=== PATIENT | female | born 1975 | race Caucasian/White ===

== ENCOUNTER 2017-07-17 15:07 | Emergency (ER) | payer BC ==
[2017-07-17 15:15] VITALS: TEMP 100.1
[2017-07-17] MEDS ORDERED: METOCLOPRAMIDE 5 MG/ML 2 ML VIAL IVP STA (15:44)
[2017-07-17] MEDS ORDERED: ASPIRIN 81 MG PO STA (15:44)
[2017-07-17] MEDS ORDERED: KETOROLAC 30 MG/ML 1 ML VIAL IVP STA (15:44)
[2017-07-17] MEDS ORDERED: SODIUM CHLORIDE 0.9% 500 ML IV STA (15:44)
[2017-07-17] MEDS ORDERED: SODIUM CHLORIDE 0.9% 1,000 ML IV STA (15:44)
[2017-07-17] MEDS ORDERED: LABETALOL 5 MG/ML VIAL MDV IVP STA (15:46)
--- NOTE | 2017-07-17 15:50 | ED ---
General Adult HPI - General Chief complaint: Recheck/Abnormal Lab/Rx Stated complaint: HTN Time Seen by Provider: 07/17/17 15:38 Source: patient Mode of arrival: ambulatory Limitations: no limitations - History of Present Illness Initial comments: This 42-year-old white female presents with primary complaint of high blood pressure. She states that over the past several weeks she has had an elevation of her blood pressure around 180/110. She was seen by her ENT physician today and it was elevated. She apparently followed up with primary care and they sent her to the ER for further evaluation in this regard as well as due to an abnormal EKG. She states that she has had a headache for the past 3 weeks. 3 days ago, she developed some left chest pain which radiated to her left arm. She denies any known cardiac history. She has a remote history of a stress echo but no recent stress test. She denies any current chest pain or shortness of breath. She does have a history of hypertension but was taken off of her Zestril this past year as her blood pressure was normal at that time. She has had some nausea but no vomiting. No other complaints or modifying factors. - Related Data Home Medications Medication Instructions Recorded Confirmed Venlafaxine HCl [Effexor XR] 75 mg PO DAILY 07/17/17 07/17/17 Venlafaxine HCl [Effexor XR] 150 mg PO DAILY 07/17/17 07/17/17 Previous Rx's Medication Instructions Recorded Lisinopril [Zestril] 10 mg PO DAILY #90 tab 07/17/17 Allergies Allergy/AdvReac Type Severity Reaction Status Date / Time erythromycin base Allergy Rash/Hives/ Verified 07/17/17 15:57 [Erythromycin Base] Vomiting Review of Systems ROS Statement: Those systems with pertinent positive or pertinent negative responses have been documented in the HPI. ROS Other: All systems not noted in ROS Statement are negative. Past Medical History Past Medical History: GERD/Reflux, Hypertension History of Any Multi-Drug Resistant Organisms: None Reported Past Surgical History: Adenoidectomy, Cholecystectomy, Hernia Repair, Hysterectomy, Tonsillectomy Past Psychological History: No Psychological Hx Reported Smoking Status: Current every day smoker Past Alcohol Use History: Occasional Past Drug Use History: None Reported General Exam - General Exam Comments Initial Comments: GENERAL: The patient is well nourished and well hydrated. VITAL SIGNS: Heart rate, blood pressure, respiratory rate reviewed as recorded in nurse's notes. EYES: Pupils are round and reactive. Extraocular movements are intact. No conjunctival / lid redness or swelling. ENT: No external evidence of injury, swelling, or ecchymosis. Airway is patent. Throat is clear. NECK: Nontender. No swelling or evidence of injury. No subcutaneous emphysema. Trachea is midline. No thyroid mass. HEART: Regular rate and rhythm. Good peripheral pulses. LUNGS/CHEST: Breath sounds clear and equal bilaterally. No rales, rhonchi, or wheezes. No ecchymosis, subcutaneous emphysema, or tenderness. ABDOMEN: Abdomen soft without tenderness. No palpable masses or organomegaly. No peritoneal signs. No abdominal wall swelling or ecchymosis. EXTREMITIES: No extremity tenderness. Normal muscle tone and function. No thoracolumbar tenderness. NEUROLOGIC: Sensation is grossly intact. Cranial nerve exam reveals face is symmetrical, tongue is midline, speech is clear. SKIN: No abrasions or ecchymosis is noted. No induration or masses noted. PSYCHIATRIC: Alert and oriented. Appropriate behavior and judgment. Limitations: no limitations Course Vital Signs 07/17/17 07/17/17 07/17/17 15:13 15:39 16:39 Temperature 100.1 F H Pulse Rate 100 69 Respiratory 18 16 Rate Blood Pressure 188/105 163/96 150/100 O2 Sat by Pulse 99 96 Oximetry 07/17/17 17:40 Temperature Pulse Rate 70 Respiratory 17 Rate Blood Pressure 157/97 O2 Sat by Pulse 97 Oximetry Medical Decision Making - Medical Decision Making The patient was seen and examined. All diagnostics were reviewed. The EKG shows a normal sinus rhythm at a rate of 91. There is no acute ST-T wave changes identified. The CA interval is 146, QRS duration is 86, and the QTc interval is 440. The patient does receive an IV and is placed on a athletic monitor. No ectopy is identified. The patient receives some Reglan, Toradol, aspirin, and labetalol. The chest x-ray does not show any acute processes. The laboratory is all essentially within normal limits. She is feeling remarkably improved on recheck. Her blood pressure has come down and her headache is resolved. It is felt as though she would benefit from additional blood pressure medication. She previously was on Zestril 10 mg daily but has been off it for a year. She seemed to tolerate this medication well in the past and will be restarted on this medication. She was offered admission to the hospital as she did have a chest pain episode 3 days ago. She refuses. Risks and benefits were discussed. She is agreeable to following up closely with primary care physician for stress test on an outpatient basis and to return if symptoms do worsen. - Lab Data Result diagrams: 07/17/17 15:34 07/17/17 15:34 Lab Results 07/17/17 07/17/17 07/17/17 Range/Units 15:34 15:34 15:34 WBC 10.4 (3.8-10.6) k/uL RBC 4.45 (3.80-5.40) m/uL Hgb 15.2 (11.4-16.0) gm/dL Hct 45.3 (34.0-46.0) % MCV 101.8 H (80.0-100.0) fL MCH 34.2 (25.0-35.0) pg MCHC 33.6 (31.0-37.0) g/dL RDW 12.0 (11.5-15.5) % Plt Count 392 (150-450) k/uL Neutrophils % 64 % Lymphocytes % 24 % Monocytes % 4 % Eosinophils % 3 % Basophils % 1 % Neutrophils # 6.7 (1.3-7.7) k/uL Lymphocytes # 2.5 (1.0-4.8) k/uL Monocytes # 0.5 (0-1.0) k/uL Eosinophils # 0.3 (0-0.7) k/uL Basophils # 0.1 (0-0.2) k/uL PT (9.0-12.0) sec INR (<1.2) APTT (22.0-30.0) sec Sodium 138 (137-145) mmol/L Potassium 5.3 H (3.5-5.1) mmol/L Chloride 104 (98-107) mmol/L Carbon Dioxide 24 (22-30) mmol/L Anion Gap 10 mmol/L BUN 7 (7-17) mg/dL Creatinine 0.72 (0.52-1.04) mg/dL Est GFR (MDRD) Af Amer >60 (>60 ml/min/1.73 sqM) Est GFR (MDRD) Non-Af >60 (>60 ml/min/1.73 sqM) Glucose 94 (74-99) mg/dL Calcium 9.6 (8.4-10.2) mg/dL Magnesium 1.9 (1.6-2.3) mg/dL Total Bilirubin 0.4 (0.2-1.3) mg/dL AST 29 (14-36) U/L ALT 22 (9-52) U/L Alkaline Phosphatase 57 (38-126) U/L Total Creatine Kinase 36 (30-135) U/L CK-MB (CK-2) 0.7 (0.0-2.4) ng/mL CK-MB (CK-2) Rel Index 1.9 Troponin I <0.012 (0.000-0.034) ng/mL Total Protein 7.5 (6.3-8.2) g/dL Albumin 4.7 (3.5-5.0) g/dL Urine Color Urine Appearance (Clear) Urine pH (5.0-8.0) Ur Specific [place] (1.001-1.035) Urine Protein (Negative) Urine Glucose (UA) (Negative) Urine Ketones (Negative) Urine Blood (Negative) Urine Nitrite (Negative) Urine Bilirubin (Negative) Urine Urobilinogen (<2.0) mg/dL Ur Leukocyte Esterase (Negative) 07/17/17 07/17/17 Range/Units 15:34 16:20 WBC (3.8-10.6) k/uL RBC (3.80-5.40) m/uL Hgb (11.4-16.0) gm/dL Hct (34.0-46.0) % MCV (80.0-100.0) fL MCH (25.0-35.0) pg MCHC (31.0-37.0) g/dL RDW (11.5-15.5) % Plt Count (150-450) k/uL Neutrophils % % Lymphocytes % % Monocytes % % Eosinophils % % Basophils % % Neutrophils # (1.3-7.7) k/uL Lymphocytes # (1.0-4.8) k/uL Monocytes # (0-1.0) k/uL Eosinophils # (0-0.7) k/uL Basophils # (0-0.2) k/uL PT 10.1 (9.0-12.0) sec INR 1.0 (<1.2) APTT 25.1 (22.0-30.0) sec Sodium (137-145) mmol/L Potassium (3.5-5.1) mmol/L Chloride (98-107) mmol/L Carbon Dioxide (22-30) mmol/L Anion Gap mmol/L BUN (7-17) mg/dL Creatinine (0.52-1.04) mg/dL Est GFR (MDRD) Af Amer (>60 ml/min/1.73 sqM) Est GFR (MDRD) Non-Af (>60 ml/min/1.73 sqM) Glucose (74-99) mg/dL Calcium (8.4-10.2) mg/dL Magnesium (1.6-2.3) mg/dL Total Bilirubin (0.2-1.3) mg/dL AST (14-36) U/L ALT (9-52) U/L Alkaline Phosphatase (38-126) U/L Total Creatine Kinase (30-135) U/L CK-MB (CK-2) (0.0-2.4) ng/mL CK-MB (CK-2) Rel Index Troponin I (0.000-0.034) ng/mL Total Protein (6.3-8.2) g/dL Albumin (3.5-5.0) g/dL Urine Color Colorless Urine Appearance Clear (Clear) Urine pH 7.0 (5.0-8.0) Ur Specific [place] 1.003 (1.001-1.035) Urine Protein Negative (Negative) Urine Glucose (UA) Negative (Negative) Urine Ketones Negative (Negative) Urine Blood Negative (Negative) Urine Nitrite Negative (Negative) Urine Bilirubin Negative (Negative) Urine Urobilinogen <2.0 (<2.0) mg/dL Ur Leukocyte Esterase Negative (Negative) Disposition Clinical Impression: Hypertensive urgency, Cephalgia, Chest pain Disposition: HOME SELF-CARE Condition: Good Instructions: DASH Eating Plan (ED), Hypertension (ED), Acute Headache (ED), Chest Pain (ED) Prescriptions: Lisinopril [Zestril] 10 mg PO DAILY #90 tab Referrals: Jordan Encarnacion MD [Primary Care Provider] - 1-2 days Time of Disposition: 17:57
[2017-07-17 15:58] LABS: Basophils # (A) 0.1 k/uL (0-0.2); Basophils % (A) 1 %; CH 33.2; CHCM 32.7; Eosinophils # (A) 0.3 k/uL (0-0.7); Eosinophils % (A) 3 %; HCT 45.3 % (34.0-46.0); HDW 2.05; HGB 15.2 gm/dL (11.4-16.0); Luc # (Auto) 0.46; Luc % (Auto) 5; Lymphocytes # (A) 2.5 k/uL (1.0-4.8); Lymphocytes % (A) 24 %; MCH 34.2 pg (25.0-35.0); MCHC 33.6 g/dL (31.0-37.0); MCV 101.8 fL (80.0-100.0); Mean Platelet Volume 6.6; Monocytes # (A) 0.5 k/uL (0-1.0); Monocytes % (A) 4 %; Neutrophils # (A) 6.7 k/uL (1.3-7.7); Neutrophils % (A) 64 %; RBC 4.45 m/uL (3.80-5.40); WBC 10.4 k/uL (3.8-10.6)
[2017-07-17 16:04] LABS: Partial Thromboplastin Time 25.1 sec (22.0-30.0); Prothrombin Time 10.1 sec (9.0-12.0)
[2017-07-17 16:15] LABS: ALT 22 U/L (9-52); AST 29 U/L (14-36); Alkaline Phosphatase 57 U/L (38-126); Anion Gap 10 mmol/L; Blood Urea Nitrogen 7 mg/dL (7-17); Calcium 9.6 mg/dL (8.4-10.2); Carbon Dioxide 24 mmol/L (22-30); Chloride 104 mmol/L (98-107); Creatine Kinase 36 U/L (30-135); Glucose 94 mg/dL (74-99); Magnesium 1.9 mg/dL (1.6-2.3); Non-African American GFR(MDRD) >60 (>60 ml/min/1.73 sqM); Potassium 5.3 mmol/L (3.5-5.1); Sodium 138 mmol/L (137-145); Total Bilirubin 0.4 mg/dL (0.2-1.3); Total Protein 7.5 g/dL (6.3-8.2)
[2017-07-17 16:24] LABS: Appearance,Urine Clear (Clear); Bilirubin,Urine Negative (Negative); Glucose,Urine (UA) Negative (Negative); Ketones,Urine Negative (Negative); Leukocyte Esterase,Urine Negative (Negative); Nitrite,Urine Negative (Negative); Protein,Urine Negative (Negative); Specific Gravity,Urine 1.003 (1.001-1.035); UA Billing (MACRO vs. MICRO) CHEM; Urobilinogen,Urine <2.0 mg/dL (<2.0)
[2017-07-17 16:28] LABS: Creatine Kinase MB 0.7 ng/mL (0.0-2.4); Troponin I <0.012 ng/mL (0.000-0.034)
--- NOTE | 2017-07-17 16:47 | XR ---
EXAMINATION TYPE: XR chest 2V DATE OF EXAM: 07/17/2017 COMPARISON: Chest x-ray November 11, 2008 HISTORY: Chest pain per order. TECHNIQUE: Frontal and lateral views of the chest are obtained. FINDINGS: There is no focal air space opacity, pleural effusion, or pneumothorax seen. The cardiac silhouette size is within normal limits. The osseous structures are intact. Cholecystectomy clips a re noted on lateral view. IMPRESSION: No acute cardiopulmonary process.
[2017-07-17 17:41] VITALS: BP 157/97; PULSE 70; RESP 17
== END 2017-07-17 18:13 | disposition home or self-care (01) ==
LOC: EC 15:07
DX: I10 Essential (primary) hypertension (principal); R51 Headache; R07.9 Chest pain, unspecified; F17.200 Nicotine dependence, unspecified, uncomplicated; Z79.899 Other long term (current) drug therapy; Z88.1 Allergy status to other antibiotic agents
CPT/HCPCS: 99284 ×2; 96374 ×2; 96375 ×3; 96361 ×3; 36415; 93005; 80053; 82550; 82553; 83735; 84484; 85025; 85610; 85730; 81003; 84703; 87040; 71020; J2765; J1885

== ENCOUNTER 2017-08-01 10:53 | Emergency (ER) | payer BC ==
[2017-08-01] MEDS ORDERED: SODIUM CHLORIDE 0.9% 1,000 ML IV STA ×2 (11:23)
[2017-08-01] MEDS ORDERED: SODIUM CHLORIDE 0.9% 500 ML IV STA (11:23)
[2017-08-01] MEDS ORDERED: LORazepam 2 MG/ML INJ IV STA (11:23)
[2017-08-01] MEDS ORDERED: LABETALOL 5 MG/ML VIAL MDV IVP STA (11:23)
--- NOTE | 2017-08-01 11:28 | ED ---
General Adult HPI - General Chief complaint: Recheck/Abnormal Lab/Rx Stated complaint: high blood pressure Time Seen by Provider: 08/01/17 11:12 Source: patient, RN notes reviewed, old records reviewed Mode of arrival: wheelchair Limitations: no limitations - History of Present Illness Initial comments: This is a 42-year-old female to the ER for evaluation. Patient presents today for reevaluation of severely elevated blood pressure as well as what she states is some facial drooping that she noticed last night. Patient denies headache. Patient states she has multiple issues numbness and tingling in legs and feet. Patient was recently in ER for similar symptoms started on antihypertensive medication and has still had elevated blood pressure at home. Patient denies drugs or alcohol. Denies chest pain no nausea vomiting or abdominal pain. - Related Data Home Medications Medication Instructions Recorded Confirmed Venlafaxine HCl [Effexor XR] 225 mg PO DAILY 07/17/17 08/01/17 Lisinopril [Zestril] 20 mg PO DAILY 08/01/17 08/01/17 Allergies Allergy/AdvReac Type Severity Reaction Status Date / Time erythromycin base Allergy Rash/Hives/ Verified 08/01/17 11:16 [Erythromycin Base] Vomiting Review of Systems ROS Statement: Those systems with pertinent positive or pertinent negative responses have been documented in the HPI. ROS Other: All systems not noted in ROS Statement are negative. Past Medical History Past Medical History: GERD/Reflux, Hypertension History of Any Multi-Drug Resistant Organisms: None Reported Past Surgical History: Adenoidectomy, Section, Cholecystectomy, Hernia Repair, Hysterectomy, Tonsillectomy Past Psychological History: Anxiety, Depression Smoking Status: Current every day smoker Past Alcohol Use History: Occasional Past Drug Use History: None Reported General Exam Limitations: no limitations General appearance: alert, in no apparent distress, anxious Head exam: Present: atraumatic, normocephalic, normal inspection Eye exam: Present: normal appearance, PERRL, EOMI. Absent: scleral icterus, conjunctival injection, periorbital swelling ENT exam: Present: normal exam, mucous membranes moist Neck exam: Present: normal inspection. Absent: tenderness, meningismus, lymphadenopathy Respiratory exam: Present: normal lung sounds bilaterally. Absent: respiratory distress, wheezes, rales, rhonchi, stridor Cardiovascular Exam: Present: normal rhythm, tachycardia, normal heart sounds. Absent: systolic murmur, diastolic murmur, rubs, gallop, clicks GI/Abdominal exam: Present: soft, normal bowel sounds. Absent: distended, tenderness, guarding, rebound, rigid Extremities exam: Present: normal inspection, full ROM, normal capillary refill. Absent: tenderness, pedal edema, joint swelling, calf tenderness Back exam: Present: normal inspection Neurological exam: Present: alert, oriented X3, CN II-XII intact Psychiatric exam: Present: normal affect, normal mood Skin exam: Present: warm, dry, intact, normal color. Absent: rash Course Vital Signs 08/01/17 08/01/17 08/01/17 11:03 11:46 12:29 Temperature 99.0 F Pulse Rate 129 H 98 93 Respiratory 18 18 14 Rate Blood Pressure 180/109 161/97 140/79 O2 Sat by Pulse 100 100 99 Oximetry - Reevaluation(s) Reevaluation #1: 08/01/17 11:59 Patient's blood pressure and anxiety has improved Reevaluation #2: 08/01/17 12:00 Patient is not TPA candidate secondary to low NIH O patient has no appreciable neurological deficit, facial droop is also greater than 24h Reevaluation #3: 08/01/17 13:07 Blood pressure is well-controlled at this time EKG Findings - EKG Comments: EKG Findings:: EKG shows sinus tachycardia rate 112, MI 168, QRS 88, QTC 439 Medical Decision Making - Medical Decision Making 42 female to the ER for evaluation. Patient presents here for evaluation of anxiety. Elevated blood pressure. Patient is taking outpatient medication as prescribed. Patient's blood pressures improved in the ER CT is negative, neurological symptoms are nonspecific. Patient will be discharged home - Lab Data Result diagrams: 08/01/17 11:50 08/01/17 11:50 Lab Results 08/01/17 08/01/17 08/01/17 Range/Units 11:50 11:50 11:50 WBC 11.1 H (3.8-10.6) k/uL RBC 4.80 (3.80-5.40) m/uL Hgb 15.9 (11.4-16.0) gm/dL Hct 48.5 H (34.0-46.0) % MCV 101.0 H (80.0-100.0) fL MCH 33.2 (25.0-35.0) pg MCHC 32.9 (31.0-37.0) g/dL RDW 11.9 (11.5-15.5) % Plt Count 349 (150-450) k/uL Neutrophils % 68 % Lymphocytes % 24 % Monocytes % 4 % Eosinophils % 2 % Basophils % 1 % Neutrophils # 7.5 (1.3-7.7) k/uL Lymphocytes # 2.6 (1.0-4.8) k/uL Monocytes # 0.4 (0-1.0) k/uL Eosinophils # 0.2 (0-0.7) k/uL Basophils # 0.1 (0-0.2) k/uL Sodium 137 (137-145) mmol/L Potassium 4.2 (3.5-5.1) mmol/L Chloride 102 (98-107) mmol/L Carbon Dioxide 24 (22-30) mmol/L Anion Gap 11 mmol/L BUN 4 L (7-17) mg/dL Creatinine 0.49 L (0.52-1.04) mg/dL Est GFR (MDRD) Af Amer >60 (>60 ml/min/1.73 sqM) Est GFR (MDRD) Non-Af >60 (>60 ml/min/1.73 sqM) Glucose 120 H (74-99) mg/dL Calcium 9.6 (8.4-10.2) mg/dL Phosphorus 3.0 (2.5-4.5) mg/dL Magnesium 1.8 (1.6-2.3) mg/dL Total Bilirubin 0.4 (0.2-1.3) mg/dL AST 19 (14-36) U/L ALT 27 (9-52) U/L Alkaline Phosphatase 54 (38-126) U/L Total Creatine Kinase 31 (30-135) U/L CK-MB (CK-2) 0.5 (0.0-2.4) ng/mL CK-MB (CK-2) Rel Index 1.6 Troponin I <0.012 (0.000-0.034) ng/mL Total Protein 7.2 (6.3-8.2) g/dL Albumin 4.7 (3.5-5.0) g/dL - Radiology Data Radiology results: report reviewed (CT brain is negative for acute disease), image reviewed Disposition Clinical Impression: Hypertensive urgency Disposition: HOME SELF-CARE Condition: Good Instructions: Hypertension (ED) Referrals: Jordan Encranacion MD [Primary Care Provider] - 1-2 days
[2017-08-01 12:08] LABS: Basophils # (A) 0.1 k/uL (0-0.2); Basophils % (A) 1 %; CH 33.6; CHCM 33.5; Eosinophils # (A) 0.2 k/uL (0-0.7); Eosinophils % (A) 2 %; HCT 48.5 % (34.0-46.0); HDW 2.06; HGB 15.9 gm/dL (11.4-16.0); Luc # (Auto) 0.27; Luc % (Auto) 2; Lymphocytes # (A) 2.6 k/uL (1.0-4.8); Lymphocytes % (A) 24 %; MCH 33.2 pg (25.0-35.0); MCHC 32.9 g/dL (31.0-37.0); Mean Platelet Volume 6.1; Monocytes # (A) 0.4 k/uL (0-1.0); Monocytes % (A) 4 %; Neutrophils # (A) 7.5 k/uL (1.3-7.7); Neutrophils % (A) 68 %; RDW 11.9 % (11.5-15.5); WBC 11.1 k/uL (3.8-10.6); WBC (Perox) 10.25
[2017-08-01 12:27] LABS: ALT 27 U/L (9-52); AST 19 U/L (14-36); Alkaline Phosphatase 54 U/L (38-126); Anion Gap 11 mmol/L; Blood Urea Nitrogen 4 mg/dL (7-17); Calcium 9.6 mg/dL (8.4-10.2); Carbon Dioxide 24 mmol/L (22-30); Chloride 102 mmol/L (98-107); Glucose 120 mg/dL (74-99); Magnesium 1.8 mg/dL (1.6-2.3); Non-African American GFR(MDRD) >60 (>60 ml/min/1.73 sqM); Potassium 4.2 mmol/L (3.5-5.1); Sodium 137 mmol/L (137-145); Total Bilirubin 0.4 mg/dL (0.2-1.3); Total Protein 7.2 g/dL (6.3-8.2)
--- NOTE | 2017-08-01 12:32 | CT ---
EXAMINATION TYPE: CT brain wo con DATE OF EXAM: 08/01/2017 COMPARISON: NONE INDICATION: High blood pressure DLP: 1091 mGycm, Automated exposure control for dose reduction was used. CONTRAST: None CT of the brain is performed utilizing 3 mm thick sections through the posterior fossa and 3 mm thick sections through the remaining calvarium. Study is performed within 24 hours of arrival to the hosp ital. No abnormal hyperdensity is present to suggest an acute intracranial hemorrhage. No mass lesion is evident. No acute infarcts are evident. Ventricles and sulci are appropriate for the patient age. Paranasal sinuses and mastoid air cells within the [id number] are clear. IMPRESSIONS: 1. Normal CT Brain
[2017-08-01 12:34] LABS: Creatine Kinase 31 U/L (30-135)
[2017-08-01 12:45] LABS: Creatine Kinase MB 0.5 ng/mL (0.0-2.4); Troponin I <0.012 ng/mL (0.000-0.034)
[2017-08-01 13:28] VITALS: BP 123/85; PULSE 100; RESP 18; TEMP 98.7
== END 2017-08-01 13:26 | disposition home or self-care (01) ==
LOC: EC 10:53
DX: I16.0 Hypertensive urgency (principal); R00.0 Tachycardia, unspecified; R29.810 Facial weakness; R20.0 Anesthesia of skin; R20.2 Paresthesia of skin; F32.9 Major depressive disorder, single episode, unspecified; F41.9 Anxiety disorder, unspecified; F17.200 Nicotine dependence, unspecified, uncomplicated; Z79.899 Other long term (current) drug therapy; Z88.1 Allergy status to other antibiotic agents
CPT/HCPCS: 99284 ×2; 96374 ×2; 96361 ×2; 36415; 93005; 80053; 82550; 82553; 83735; 84100; 84484; 85025; 70450; J2060

== ENCOUNTER → 2017-10-02 | Outpatient (CLI) | payer BC ==
--- NOTE | 2017-10-02 17:25 | NM ---
EXAMINATION TYPE: NM bone/joint limited DATE OF EXAM: 10/02/2017 COMPARISON: 11/04/2015 HISTORY: Pain in thoracic spine TECHNIQUE: After the intravenous administration of 27 mCi Tc 99m MDP. Images acquired post injectio n. Multiple views of the thoracic cavity are submitted. There is no abnormal uptake within the visualized osseous structures to suggest acute process. No ki picious uptake within the thoracic or lumbar spine within the [id number] is evident. Uptake within the ribs appears normal. IMPRESSION: No acute osseous abnormality. Thoracic spine has normal radiotracer distribution
== END | disposition home or self-care (01) ==
LOC: RADNMMAIN 09:56
PROVIDERS: ATTEND Physical Medicine & Rehabilitation
DX: M54.6 Pain in thoracic spine (principal)
CPT/HCPCS: 78300; A9503

== ENCOUNTER 2021-02-21 02:14 | Emergency (ER) | payer BC ==
[2021-02-21 02:25] VITALS: BP 150/101; PULSE 92; RESP 20; TEMP 98.1
[2021-02-21] MEDS ORDERED: CEPHALEXIN 500MG STARTER PACK 4 CAP BTL PO STA (03:04)
[2021-02-21] MEDS ORDERED: CEPHALEXIN 500 MG CAP PO STA (03:04)
--- NOTE | 2021-02-21 03:04 | ED ---
Wound/Laceration HPI - General Chief Complaint: Wound/Laceration Stated Complaint: Knee Injury/Laceration Time Seen by Provider: 02/21/21 02:17 Source: patient, family, RN notes reviewed, old records reviewed Mode of arrival: ambulatory Limitations: no limitations - History of Present Illness Initial Comments: This is a 45-year-old female DF for evaluation patient Dese for evaluation regards to laceration patient drinking last night and sustained laceration to the knee. Patient presents for evaluation of right knee pain minimal bleeding and laceration -: hour(s) Extremity Location: Right: Knee Place: home Patient Tetanus UTD: Yes Context: accidental Associated Symptoms: none Treatments Prior to Arrival: bandage - Related Data Home Medications Medication Instructions Recorded Confirmed Venlafaxine HCl [Effexor XR] 225 mg PO DAILY 07/17/17 08/01/17 lisinopriL [Zestril] 20 mg PO DAILY 08/01/17 08/01/17 Allergies Allergy/AdvReac Type Severity Reaction Status Date / Time erythromycin base Allergy Rash/Hives/ Verified 02/21/21 02:25 [Erythromycin Base] Vomiting Review of Systems ROS Statement: Those systems with pertinent positive or pertinent negative responses have been documented in the HPI. ROS Other: All systems not noted in ROS Statement are negative. Past Medical History Past Medical History: GERD/Reflux, Hypertension History of Any Multi-Drug Resistant Organisms: None Reported Past Surgical History: Adenoidectomy, Section, Cholecystectomy, Hernia Repair, Hysterectomy, Tonsillectomy Past Psychological History: Anxiety, Depression Smoking Status: Current every day smoker Past Alcohol Use History: Heavy Past Drug Use History: None Reported General Exam - General Exam Comments Initial Comments: Significant laceration right knee this centimeters Limitations: no limitations General appearance: alert, in no apparent distress Head exam: Present: atraumatic, normocephalic, normal inspection Eye exam: Present: normal appearance, PERRL, EOMI. Absent: scleral icterus, conjunctival injection, periorbital swelling ENT exam: Present: normal exam, mucous membranes moist Neck exam: Present: normal inspection. Absent: tenderness, meningismus, lymphadenopathy Respiratory exam: Present: normal lung sounds bilaterally. Absent: respiratory distress, wheezes, rales, rhonchi, stridor Cardiovascular Exam: Present: regular rate, normal rhythm, normal heart sounds. Absent: systolic murmur, diastolic murmur, rubs, gallop, clicks GI/Abdominal exam: Present: soft, normal bowel sounds. Absent: distended, tenderness, guarding, rebound, rigid Extremities exam: Present: normal inspection, full ROM, normal capillary refill. Absent: tenderness, pedal edema, joint swelling, calf tenderness Back exam: Present: normal inspection Neurological exam: Present: alert, oriented X3, CN II-XII intact Psychiatric exam: Present: normal affect, normal mood Skin exam: Present: warm, dry, intact, normal color. Absent: rash Course Vital Signs 02/21/21 02:20 Temperature 98.1 F Pulse Rate 92 Respiratory 20 Rate Blood Pressure 150/101 O2 Sat by Pulse 99 Oximetry - Reevaluation(s) Reevaluation #1: Medical record is reviewed Patient has no significant acute symptoms improving symptoms here in the ER Patient informed results and questions have been answered Procedures - Laceration Laceration #1 Consent Obtained: verbal consent Indication: laceration Site: lower extremity Description: linear Depth: simple, single layer Anesthetic Used: lidocaine 1%, with epi Anesthesia Technique: local infiltration Type of Sutures: nylon Size of Sutures: 4-0 Technique: simple, interrupted Complications: pain Patient Tolerated Procedure: well Medical Decision Making - Medical Decision Making 45 female DF for evaluation of knee laceration laceration is repaired. Patient can be discharged home Disposition Clinical Impression: Laceration, Fall, Laceration of right knee Disposition: HOME SELF-CARE Condition: Good Instructions (If sedation given, give patient instructions): Laceration (ED) Is patient prescribed a controlled substance at d/c from ED?: No Referrals: Nonstaff,Physician [REFERRING] - 1-2 days
[2021-02-21] MEDS ORDERED: LIDOCAINE 1% INJ 10MG/ML (20 ML MDV) SQ ONE (03:05)
== END 2021-02-21 03:18 | disposition home or self-care (01) ==
LOC: EC 02:14
DX: S81.011A Laceration without foreign body, right knee, initial encounter (principal); I10 Essential (primary) hypertension; K21.9 Gastro-esophageal reflux disease without esophagitis; F17.200 Nicotine dependence, unspecified, uncomplicated; W10.9XXA Fall (on) (from) unspecified stairs and steps, initial encounter
CPT/HCPCS: 12001; 99282; J2001

== ENCOUNTER 2021-08-21 20:28 | Emergency (ER) | payer BC ==
[2021-08-21] MEDS ORDERED: guaiFENesin-DM 600/30MG 1 EACH TAB.ER.12H PO STA (22:17)
[2021-08-21] MEDS ORDERED: HYDROcodone/APAP 7.5-325MG 1 EACH TAB PO ONE (22:17)
[2021-08-21] MEDS ORDERED: ACETAMINOPHEN TAB 500 MG TAB PO STA (22:23)
--- NOTE | 2021-08-21 22:26 | ED ---
URI HPI - General Chief Complaint: Upper Respiratory Infection Stated Complaint: Cough,SOB Time Seen by Provider: 08/21/21 21:42 Source: patient, family Mode of arrival: ambulatory Limitations: no limitations - History of Present Illness Initial Comments: 46-year-old female patient presents to the emergency department today for evaluation of cough and congestion. States she has been coughing for the last 3 days. States whenever she coughs she has severe pain in her chest. States it hurts take a deep breath. She reports elevated temperatures are 99.5-99.7F. States that she has been being treated for a left-sided ear infection for the last few months. States she is currently on antibiotic drops and steroids. States she did complete a course of Omnicef, Augmentin, and Bactrim for the ear. She does admit to smoking cigarettes. Denies any diagnosed lung conditions. States she has been taking ibuprofen but no other medication for her symptoms. Patient denies any recent rash, abdominal pain, nausea, vomiting, diarrhea, constipation, back pain, numbness, tingling, dizziness, weakness, hematuria, dysuria, urinary urgency, urinary frequency, headache, visual changes, or any other complaints. - Related Data Home Medications Medication Instructions Recorded Confirmed Venlafaxine HCl [Effexor XR] 225 mg PO DAILY 07/17/17 08/21/21 Fwoppgpa-Fcxhrkdqo-Ra Otic 4 drops LEFT EAR QID 08/21/21 08/21/21 [Cortisporin Otic Soln] amLODIPine [Norvasc] 10 mg PO DAILY 08/21/21 08/21/21 lisinopriL 60 mg PO DAILY 08/21/21 08/21/21 predniSONE See Taper PO DAILY 08/21/21 08/21/21 Previous Rx's Medication Instructions Recorded Albuterol Sulfate [Proair Hfa] 1 - 2 puff INHALATION Q6HR PRN 08/22/21 #8.5 gm Doxycycline [Vibramycin] 100 mg PO BID #20 capsule 08/22/21 guaiFENesin-DM 600/30MG [Mucinex 2 each PO Q12HR PRN #20 tab 08/22/21 Dm] Allergies Allergy/AdvReac Type Severity Reaction Status Date / Time erythromycin base Allergy Rash/Hives/ Verified 08/21/21 22:44 [Erythromycin Base] Vomiting Review of Systems ROS Statement: Those systems with pertinent positive or pertinent negative responses have been documented in the HPI. ROS Other: All systems not noted in ROS Statement are negative. Past Medical History Past Medical History: GERD/Reflux, Hypertension History of Any Multi-Drug Resistant Organisms: None Reported Past Surgical History: Adenoidectomy, Section, Cholecystectomy, Hernia Repair, Hysterectomy, Tonsillectomy Past Psychological History: Anxiety, Depression Smoking Status: Current every day smoker Past Alcohol Use History: Heavy Past Drug Use History: None Reported General Exam Limitations: no limitations General appearance: alert, in no apparent distress, other (This is a well- developed, well-nourished adult female patient in no acute distress.) ENT exam: Present: normal exam, normal oropharynx, mucous membranes moist, other (Left external auditory canal erythema and swelling). Absent: TM's normal bilaterally (Left tympanic membrane is obscured by purulent appearing drainage) Neck exam: Present: normal inspection. Absent: tenderness, meningismus, lymphadenopathy Respiratory exam: Present: normal lung sounds bilaterally, wheezes (Expiratory wheezing). Absent: respiratory distress, rales, rhonchi, stridor, accessory muscle use Cardiovascular Exam: Present: normal rhythm, tachycardia, normal heart sounds. Absent: systolic murmur, diastolic murmur, rubs, gallop, clicks GI/Abdominal exam: Present: soft, normal bowel sounds. Absent: distended, tenderness, guarding, rebound, rigid Neurological exam: Present: alert, oriented X3, CN II-XII intact Psychiatric exam: Present: normal affect, normal mood Skin exam: Present: warm, dry, intact, normal color. Absent: rash Course Vital Signs 08/21/21 08/21/21 08/22/21 20:32 23:11 00:24 Temperature 98.3 F 98.6 F Pulse Rate 127 H 111 H 112 H Respiratory 22 18 16 Rate Blood Pressure 155/91 131/91 126/76 O2 Sat by Pulse 95 97 95 Oximetry 08/22/21 08/22/21 08/22/21 00:41 00:47 01:15 Temperature 98 F Pulse Rate 95 94 93 Respiratory 16 Rate Blood Pressure 131/80 O2 Sat by Pulse 94 L Oximetry Medical Decision Making - Medical Decision Making 46-year-old female patient presented to the emergency department today for evaluation of cough with chest discomfort. Physical examination did reveal expiratory wheezing in the posterior lung cloud. She was given medication for pain and cough. She tested negative for COVID-19. Chest x-ray revealed mild pulmonary interstitial pneumonia. She'll be started on doxycycline. Given an inhaler for wheezing. She is currently taking steroids for her left ear she is encouraged to continue these. She is given Mucinex DM for cough. Instructed to follow-up with ENT for further evaluation of her left ear symptoms. Return parameters were discussed in detail. She verbalizes understanding and agrees with this plan. Case discussed with my attending Dr. Salazar. - Lab Data Lab Results 08/21/21 08/21/21 Range/Units 23:05 23:05 Coronavirus (PCR) Not Detected (Not Detectd) Influenza Type A RNA Not Detected (Not Detectd) Influenza Type B (PCR) Not Detected (Not Detectd) - Radiology Data Radiology results: report reviewed, image reviewed Two-view x-ray of the chest is obtained. Report was reviewed in its entirety. Impression by Dr. Ocasio shows mild pulmonary interstitial pneumonia. Normal heart. Disposition Clinical Impression: Pneumonia Disposition: HOME SELF-CARE Condition: Good Instructions (If sedation given, give patient instructions): Pneumonia (ED) Additional Instructions: Complete antibiotic prescriptions in full. Use inhaler every 4-6 hours as needed for shortness of breath. Continue your steroid and eardrops. Return to the emergency department for any new, worsening, or concerning symptoms. Prescriptions: guaiFENesin-DM 600/30MG [Mucinex Dm] 2 each PO Q12HR PRN #20 tab PRN Reason: Cough Albuterol Sulfate [Proair Hfa] 1 - 2 puff INHALATION Q6HR PRN #8.5 gm PRN Reason: Shortness Of Breath Doxycycline [Vibramycin] 100 mg PO BID #20 capsule Is patient prescribed a controlled substance at d/c from ED?: No Referrals: Janice Lujan DO [Primary Care Provider] - 1-2 days Giuliano Sims MD [STAFF PHYSICIAN] - 1-2 days Time of Disposition: 01:01
--- NOTE | 2021-08-21 23:00 | XR ---
EXAMINATION TYPE: XR chest 2V DATE OF EXAM: 08/21/2021 COMPARISON: 07/17/2017 HISTORY: Chest pain TECHNIQUE: FINDINGS: Heart is normal. There is coarsening of the interstitial markings in the mid and lower lung cloud. Mediastinum is normal. There are no hilar masses. There is no pleural effusion. Bony thorax is intact. IMPRESSION: There is some mild pulmonary interstitial pneumonia. Normal heart.
[2021-08-22] MEDS ORDERED: IPRATROPIUM-ALBUTEROL 3 ML NEB INHALATION STA (00:11)
[2021-08-22 00:25] VITALS: RESP 16
[2021-08-22] MEDS ORDERED: DOXYCYCLINE 100 MG CAP PO STA (00:59)
[2021-08-22 01:16] VITALS: BP 131/80; PULSE 93; TEMP 98
== END 2021-08-22 01:18 | disposition home or self-care (01) ==
LOC: EC 20:28
DX: J18.9 Pneumonia, unspecified organism (principal); I10 Essential (primary) hypertension; F41.9 Anxiety disorder, unspecified; F32.9 Major depressive disorder, single episode, unspecified; Z79.51 Long term (current) use of inhaled steroids; Z79.899 Other long term (current) drug therapy; Z72.89 Other problems related to lifestyle; F17.200 Nicotine dependence, unspecified, uncomplicated
CPT/HCPCS: 71046; 87502; 87635; 94640; 99285

== ENCOUNTER → 2021-10-28 | Outpatient (CLI) | payer BC ==
--- NOTE | 2021-10-29 07:40 | CT ---
EXAMINATION TYPE: CT iac w con DATE OF EXAM: 10/28/2021 COMPARISON: None HISTORY: left ear infection x 6 months, pain and hearing loss CT DLP: 428 mGycm Automated exposure control for dose reduction was used. CONTRAST: CT scan of the IACs is performed with IV Contrast, patient injected with 100 mL of Isovue 370. FINDINGS: The external auditory canals are patent bilaterally. Mastoid air cells show no evidence of abnormal opacification bilaterally. The middle ear ossicles are symmetric and unremarkable. Abnorm al soft tissue within the left external jugular. #1 Decreased retention cyst or polyp involving the inferior left maxillary antrum. Nasal septal deviatio n. Changes of chronic sinusitis involving the ethmoid air cells. Mucosal thickening along the inferio r margin of the right maxillary sinus. There is no evidence of suspicious surrounding soft tissue density to suggest cholesteatoma. The scu [place] is preserved bilaterally. The cochlea and the semicircular canals are symmetric and unremarkable. Vestibular aqueduct and inte rnal carotid canal appear unremarkable. Temporomandibular joints are maintained bilaterally. IMPRESSION: 1. Middle ear is symmetric in appearance without evidence of abnormal attenuation or scutal erosion. 2. There appears to be abnormal soft tissue within the left external auditory canal correlate clinica lly. 3. Changes of chronic sinusitis.
== END | disposition home or self-care (01) ==
LOC: RADCTMAIN 16:14
PROVIDERS: ATTEND Otolaryngology
DX: J32.9 Chronic sinusitis, unspecified (principal)
CPT/HCPCS: 70481; Q9967

== ENCOUNTER → 2022-03-09 | Outpatient (CLI) | payer BC ==
--- NOTE | 2022-03-09 14:44 | CT ---
EXAMINATION TYPE: CT iac wo con DATE OF EXAM: 03/09/2022 COMPARISON: CT dated 10/28/2021 HISTORY: Ear Infections CT DLP: 150mGycm Automated exposure control for dose reduction was used. FINDINGS: Almost complete opacification of the left mastoid air cells, left aditus and antrum with partial opac ification of the left middle ear cavity suggestive of acute otomastoiditis. Debris seen within the le ft external auditory canal with suboptimal assessment of the tympanic membrane. The left scutum is in tact. Grossly unremarkable left middle ear ossicles. Symmetrical unremarkable internal auditory canals and inner ear structures. Unremarkable right middle ear structures. Unremarkable right external auditory canal with clear right mastoid air cells. Mucosal thickening of the alveolar recesses of the maxillary sinuses with marked mucosal thickening o f the right sphenoid sinus compartment. Unremarkable orbits and visualized portion of the brain. IMPRESSION: The above-described findings are highly suggestive of acute left otomastoiditis, please correlate cli nically. Subtle underlying small cholesteatoma cannot be excluded at this stage. The left scutum is i ntact. Follow-up CT scan after proper treatment can be considered if clinically required.
== END | disposition home or self-care (01) ==
LOC: RADCTMAIN 07:19
PROVIDERS: ATTEND Otolaryngology
DX: J34.89 Other specified disorders of nose and nasal sinuses (principal); H74.8X2 Other specified disorders of left middle ear and mastoid
CPT/HCPCS: 70480